=== PATIENT | male | born 1940 | race Caucasian/White ===

== ENCOUNTER 2016-10-07 11:39 | Inpatient (IN) | payer MEDICARE, OTHER ==
[~2016-10-07] VITALS: Ht 185.4 cm; Wt 121.3 kg
[2016-10-07] MEDS ORDERED: SODIUM CHLORIDE 0.9% 1,000 ML IV ONE (12:33)
[2016-10-07] MEDS ORDERED: PLEASE ENTER ALLERGIES MC SCH ×2 (13:00)
[2016-10-07] MEDS ORDERED: SODIUM CHLORIDE 0.9% 1,000ML IVBOLUS ONE ×2 (13:00→15:30)
[2016-10-07] MEDS ORDERED: SODIUM CHLORIDE FLUSH 10ML SYR IVF ONE ×2 (13:00→17:00)
[2016-10-07] MEDS ORDERED: ONDANSETRON 2MG/ML, 2ML IVPush ONE (13:00)
[2016-10-07] MEDS ORDERED: ACETAMINOPHEN 500 MG TABLET ONE (13:23)
[2016-10-07] MEDS ORDERED: ONDANSETRON 2MG/ML, 2ML ONE (13:24)
[2016-10-07 13:42] LABS: ASPARTATE AMINO TRANSFERASE 14 U/L (15-37); BLOOD UREA NITROGEN 21 mg/dL (7-18)
[2016-10-07 13:47] LABS: DIFF TOTAL CELLS COUNTED 100 CELL DIFF
[2016-10-07 13:49] LABS: VERIFY COUNTS? YES
[2016-10-07 13:50] LABS: ANISOCYTOSIS 1+
[2016-10-07] MEDS ORDERED: ACETAMINOPHEN 500 MG TABLET PO ONE (14:00)
[2016-10-07] MEDS ORDERED: METO-95 PO (14:26)
[2016-10-07] MEDS ORDERED: ASPI-515 PO (14:26)
[2016-10-07] MEDS ORDERED: SPIR25TA3 PO (14:26)
[2016-10-07] MEDS ORDERED: SITA100T PO (14:27)
[2016-10-07] MEDS ORDERED: LACT1CAP24 PO (14:27)
[2016-10-07] MEDS ORDERED: METF10002 PO (14:27)
[2016-10-07] MEDS ORDERED: OMEG1CAP23 PO (14:27)
[2016-10-07] MEDS ORDERED: INSU100C5 SQ-INSULIN (14:27)
[2016-10-07] MEDS ORDERED: FERR325T10 PO (14:27)
[2016-10-07] MEDS ORDERED: INSU100V8 SQ ×2 (14:27)
[2016-10-07] MEDS ORDERED: HYDR-3342 PO (14:27)
[2016-10-07] MEDS ORDERED: FLONASE 50 MCG NAS (14:27)
[2016-10-07] MEDS ORDERED: MAGN400T36 PO (14:27)
[2016-10-07] MEDS ORDERED: WARF7.5T6 PO (14:27)
[2016-10-07] MEDS ORDERED: FURO20TA3 PO (14:27)
[2016-10-07] MEDS ORDERED: ATOR20TA9 PO (14:27)
[2016-10-07] MEDS ORDERED: LISI-170 PO (14:27)
[2016-10-07] MEDS ORDERED: POTA20TA89 PO (14:27)
[2016-10-07] MEDS ORDERED: GABA300C10 PO (14:27)
[2016-10-07] MEDS ORDERED: OXYC10TA6 PO (14:27)
[2016-10-07] MEDS ORDERED: WARF10TA6 PO (14:27)
[2016-10-07 14:32] LABS: PATH.CAST-FLAG NOT PRESENT; SPERM-FLAG NOT PRESENT; SRC-FLAG NOT PRESENT; XTAL-FLAG NOT PRESENT; YLC-FLAG NOT PRESENT
[2016-10-07] MEDS ORDERED: CEFTRIAXONE PMX 1GM/50ML 50 ML ONE (15:14)
[2016-10-07] MEDS ORDERED: VANCOMYCIN PER PHARMACY MC ONE (15:30)
[2016-10-07] MEDS ORDERED: CEFTRIAXONE 1,000 MG in SODIUM CHLORIDE 0.9% 50 ML IVPB ONE (16:00)
[2016-10-07] MEDS ORDERED: VANCOMYCIN 2,500 MG in SODIUM CHLORIDE 0.9% 500 ML IV ONE (16:30)
[2016-10-07] MEDS ORDERED: TEMPLATE NON-FORMULARY MED. (Oxycodone Hcl** 10 MG) PO SCH (16:30)
[2016-10-07] MEDS ORDERED: VANCOMYCIN PER PHARMACY MC PRN (16:30)
[2016-10-07] MEDS ORDERED: DOCUSATE 100 MG CAPSULE PO PRN (17:00)
[2016-10-07] MEDS ORDERED: ACETAMINOPHEN 325 MG TABLET PO PRN (17:00)
[2016-10-07] MEDS ORDERED: hydrALAzine 20 MG/ML, 1ML IVPush PRN (17:00)
[2016-10-07] MEDS ORDERED: morphine SULFATE 10 MG/ML, 1ML IVPush PRN (17:00)
[2016-10-07] MEDS ORDERED: GUAIFENESIN/DM 200-20MG, 10ML UDC PO PRN (17:00)
[2016-10-07] MEDS ORDERED: ONDANSETRON 2MG/ML, 2ML IVPush PRN (17:00)
[2016-10-07 18:33] VITALS: BP_SYST 94; BP_SYST 97; BP_DIAS 56; BP_DIAS 57
[2016-10-07] MEDS ORDERED: OXYcodone IR 5MG TABLET PO SCH (18:43)
[2016-10-07] MEDS ORDERED: NALOXONE 1 MG/ML, 2ML ONE ×2 (18:55→19:09)
[2016-10-07] MEDS: NALOXONE 1 MG/ML, 2ML IVPush PRN ×2 (18:55→19:05)
[2016-10-07] MEDS: WARFARIN 7.5 MG TABLET PO-COUM SCH (19:00)
[2016-10-07] MEDS ORDERED: PHARMACOKINETIC CONSULTATION MC ONE (19:30)
[2016-10-07] MEDS ORDERED: PHARMACOKINETIC MONITORING MC PRN (19:30)
[2016-10-07 19:47] LABS: ABG COLLECTION SITE LEFT RADIAL; COLLATERAL CIRCULATION TESTING NORMAL
[2016-10-07] MEDS ORDERED: PIPERACILLIN/TAZO 3.375 GM in SODIUM CHLORIDE 0.9% 50 ML IV SCH (20:00)
[2016-10-07] MEDS: SODIUM CHLORIDE 0.9% 1,000 ML IV SCH (20:16)
[2016-10-07] MEDS: PIPERACILLIN/TAZO/PMX 3.375GM 50 ML IV SCH (20:37)
[2016-10-07] MEDS ORDERED: DEXTROSE 50%, 50ML SYRINGE ONE (20:38)
[2016-10-07] MEDS: SODIUM CHLORIDE FLUSH 10ML SYR IVF SCH (20:49)
[2016-10-07] MEDS ORDERED: DEXTROSE 4 GM TAB.CHEW PO PRN (21:00)
[2016-10-07] MEDS: INSULIN DETEMIR 100 UNITS/ML, PEN SQ-INSULIN SCH (21:00)
[2016-10-07] MEDS: ATORVASTATIN 20 MG TABLET PO SCH (21:00)
[2016-10-07] MEDS ORDERED: GLUCAGON 1 MG IM PRN (21:00)
[2016-10-07] MEDS ORDERED: DEXTROSE 50%, 50ML SYRINGE IVPush PRN (21:00)
[2016-10-07] MEDS: LACTOBACILLUS CHEW TABLET PO SCH (21:00)
[2016-10-07] MEDS: GABAPENTIN 300 MG CAPSULE PO SCH (21:00)
[2016-10-07] MEDS: LISINOPRIL 20 MG TABLET PO SCH (21:00)
[2016-10-07] MEDS: VANCOMYCIN 2,000 MG in SODIUM CHLORIDE 0.9% 500 ML IV SCH (21:56)
[2016-10-07] MEDS ORDERED: CEFTRIAXONE PMX 1GM/50ML 50 ML IV SCH (22:00)
[2016-10-07 22:05] VITALS: BP 128/93
[2016-10-07] MEDS: methylPREDNISolone SOD SUCC 125 MG/2 ML IVPush SCH (22:14)
[2016-10-08] VITALS (7 sets, daily range): BP systolic 125–163; BP diastolic 84–139
[2016-10-08] MEDS: PIPERACILLIN/TAZO/PMX 3.375GM 50 ML IV SCH ×3 (02:08→18:10)
[2016-10-08] MEDS: methylPREDNISolone SOD SUCC 125 MG/2 ML IVPush SCH ×3 (02:45→14:30)
[2016-10-08] MEDS ORDERED: CEFTRIAXONE PMX 1GM/50ML 50 ML IV SCH (03:00)
[2016-10-08 06:50] LABS: BLOOD UREA NITROGEN 20 mg/dL (7-18)
[2016-10-08] MEDS: GABAPENTIN 300 MG CAPSULE PO SCH ×3 (08:27→22:03)
[2016-10-08] MEDS: POTASSIUM CHLORIDE 20 MEQ TAB.ER.PRT PO SCH (08:27)
[2016-10-08] MEDS: METOPROLOL SUCCINATE 100 MG TAB.ER.24H PO SCH (08:27)
[2016-10-08] MEDS: LACTOBACILLUS CHEW TABLET PO SCH ×3 (08:27→22:02)
[2016-10-08] MEDS: SPIRONOLACTONE 25 MG TABLET PO SCH (08:27)
[2016-10-08] MEDS: FUROSEMIDE 20 MG TABLET PO SCH (08:27)
[2016-10-08] MEDS: INSULIN DETEMIR 100 UNITS/ML, PEN SQ-INSULIN SCH ×2 (08:28→22:03)
[2016-10-08] MEDS: ASPIRIN 81 MG TABLET EC PO SCH (08:28)
[2016-10-08] MEDS: FERROUS SULFATE 325 MG TABLET PO SCH (08:28)
[2016-10-08] MEDS: SODIUM CHLORIDE FLUSH 10ML SYR IVF SCH ×2 (08:29→22:02)
[2016-10-08] MEDS ORDERED: DILTIAZEM 5 MG/ML, 5ML ONE (08:46)
[2016-10-08] MEDS ORDERED: DILTIAZEM 125 MG in SODIUM CHLORIDE 0.9% 100 ML IV SCH (09:00)
[2016-10-08] MEDS ORDERED: DILTIAZEM 5 MG/ML, 5ML IVPush ONE (09:00)
[2016-10-08] MEDS: FLUTICASONE NASAL SPRAY 16GM NAS SCH (09:00)
[2016-10-08] MEDS ORDERED: METOPROLOL SUCCINATE 100 MG TAB.ER.24H PO SCH (09:00)
[2016-10-08] MEDS: SODIUM CHLORIDE 0.9% 1,000 ML IV SCH (10:00)
[2016-10-08] MEDS: INSULIN ASPART 100 UNITS/ML, PEN SQ-INSULIN SCH ×3 (14:20→22:04)
[2016-10-08] MEDS: WARFARIN 7.5 MG TABLET PO-COUM SCH (18:10)
[2016-10-08] MEDS: VANCOMYCIN 2,000 MG in SODIUM CHLORIDE 0.9% 500 ML IV SCH (18:55)
[2016-10-08] MEDS: ATORVASTATIN 20 MG TABLET PO SCH (22:02)
[2016-10-08] MEDS: LISINOPRIL 20 MG TABLET PO SCH (22:08)
[2016-10-08] MEDS: methylPREDNISolone SOD SUCC 40 MG/ML IVPush SCH (22:08)
[2016-10-09] MEDS ORDERED: MAGNESIUM SULFATE PMX 2GM/50ML 50 ML IV ONE
[2016-10-09] MEDS: PIPERACILLIN/TAZO/PMX 3.375GM 50 ML IV SCH ×5 (00:21→23:40)
[2016-10-09] MEDS ORDERED: DILTIAZEM 125 MG in SODIUM CHLORIDE 0.9% 100 ML IV SCH ×2 (01:30→09:00)
[2016-10-09 01:42] VITALS: BP 124/75
[2016-10-09] MEDS: methylPREDNISolone SOD SUCC 40 MG/ML IVPush SCH (05:53)
[2016-10-09 06:44] VITALS: BP 135/87
[2016-10-09] MEDS: ASPIRIN 81 MG TABLET EC PO SCH (08:39)
[2016-10-09] MEDS: GABAPENTIN 300 MG CAPSULE PO SCH ×3 (08:39→20:40)
[2016-10-09] MEDS: METOPROLOL SUCCINATE 100 MG TAB.ER.24H PO SCH (08:39)
[2016-10-09] MEDS: FUROSEMIDE 20 MG TABLET PO SCH (08:39)
[2016-10-09] MEDS: FERROUS SULFATE 325 MG TABLET PO SCH (08:39)
[2016-10-09] MEDS: INSULIN DETEMIR 100 UNITS/ML, PEN SQ-INSULIN SCH ×2 (08:40→20:44)
[2016-10-09] MEDS: SPIRONOLACTONE 25 MG TABLET PO SCH (08:40)
[2016-10-09] MEDS: POTASSIUM CHLORIDE 20 MEQ TAB.ER.PRT PO SCH (08:40)
[2016-10-09] MEDS: LACTOBACILLUS CHEW TABLET PO SCH ×3 (08:40→20:40)
[2016-10-09] MEDS: INSULIN ASPART 100 UNITS/ML, PEN SQ-INSULIN SCH ×4 (08:40→20:44)
[2016-10-09] MEDS: SODIUM CHLORIDE FLUSH 10ML SYR IVF SCH ×2 (08:41→20:40)
[2016-10-09] MEDS: FLUTICASONE NASAL SPRAY 16GM NAS SCH (09:54)
[2016-10-09] MEDS: VANCOMYCIN 2,000 MG in SODIUM CHLORIDE 0.9% 500 ML IV SCH (12:43)
[2016-10-09] MEDS ORDERED: DIGOXIN 0.25 MG TABLET PO ONE (13:00)
[2016-10-09 13:36] VITALS: BP 150/91
[2016-10-09] MEDS: WARFARIN 7.5 MG TABLET PO-COUM SCH (18:04)
[2016-10-09 20:29] VITALS: BP 163/93
[2016-10-09] MEDS: LISINOPRIL 20 MG TABLET PO SCH (20:40)
[2016-10-09] MEDS: HYDROcodone/APAP 5/325 TABLET PO PRN ×2 (20:41→23:41)
[2016-10-09] MEDS: ATORVASTATIN 20 MG TABLET PO SCH (20:41)
[2016-10-10 01:30] VITALS: BP_SYST 159; BP_DIAS 100; BP_DIAS 99
[2016-10-10] MEDS: PIPERACILLIN/TAZO/PMX 3.375GM 50 ML IV SCH ×3 (05:50→18:28)
[2016-10-10 06:20] LABS: BLOOD UREA NITROGEN 16 mg/dL (7-18)
[2016-10-10] MEDS: VANCOMYCIN 2,000 MG in SODIUM CHLORIDE 0.9% 500 ML IV SCH (06:29)
[2016-10-10] MEDS: INSULIN ASPART 100 UNITS/ML, PEN SQ-INSULIN SCH ×4 (07:00→21:49)
[2016-10-10 08:08] VITALS: BP 144/105
[2016-10-10] MEDS ORDERED: MAGNESIUM SULFATE PMX 2GM/50ML 50 ML IV ONE (09:00)
[2016-10-10] MEDS: INSULIN DETEMIR 100 UNITS/ML, PEN SQ-INSULIN SCH ×2 (09:44→21:48)
[2016-10-10] MEDS: ASPIRIN 81 MG TABLET EC PO SCH (09:45)
[2016-10-10] MEDS: METOPROLOL SUCCINATE 100 MG TAB.ER.24H PO SCH (09:45)
[2016-10-10] MEDS: DIGOXIN 0.125 MG TABLET PO SCH (09:45)
[2016-10-10] MEDS: FLUTICASONE NASAL SPRAY 16GM NAS SCH (09:45)
[2016-10-10] MEDS: SPIRONOLACTONE 25 MG TABLET PO SCH (09:46)
[2016-10-10] MEDS: POTASSIUM CHLORIDE 20 MEQ TAB.ER.PRT PO SCH (09:46)
[2016-10-10] MEDS: LACTOBACILLUS CHEW TABLET PO SCH ×3 (09:46→21:44)
[2016-10-10] MEDS: FUROSEMIDE 20 MG TABLET PO SCH (09:46)
[2016-10-10] MEDS: FERROUS SULFATE 325 MG TABLET PO SCH (09:46)
[2016-10-10] MEDS: GABAPENTIN 300 MG CAPSULE PO SCH ×3 (09:46→21:44)
[2016-10-10] MEDS: SODIUM CHLORIDE FLUSH 10ML SYR IVF SCH ×2 (09:54→21:44)
[2016-10-10 13:08] VITALS: BP 146/88
[2016-10-10] MEDS: WARFARIN 7.5 MG TABLET PO-COUM SCH (18:23)
[2016-10-10] MEDS: LISINOPRIL 20 MG TABLET PO SCH (21:44)
[2016-10-10] MEDS: ATORVASTATIN 20 MG TABLET PO SCH (21:44)
[2016-10-10 21:49] VITALS: BP 150/80
[2016-10-11] MEDS: PIPERACILLIN/TAZO/PMX 3.375GM 50 ML IV SCH ×4 (00:23→17:24)
[2016-10-11 02:52] VITALS: BP 125/87
[2016-10-11] MEDS ORDERED: VANCOMYCIN 2,000 MG in SODIUM CHLORIDE 0.9% 500 ML IV SCH (06:00)
[2016-10-11] MEDS ORDERED: MAGNESIUM SULFATE PMX 2GM/50ML 50 ML IV ONE (06:00)
[2016-10-11] MEDS: INSULIN ASPART 100 UNITS/ML, PEN SQ-INSULIN SCH ×4 (07:00→21:11)
[2016-10-11 07:09] LABS: BLOOD UREA NITROGEN 17 mg/dL (7-18)
[2016-10-11 07:23] VITALS: BP 152/83
[2016-10-11] MEDS ORDERED: POTASSIUM CHLORIDE 20 MEQ TAB.ER.PRT PO SCH (09:00)
[2016-10-11] MEDS: FLUTICASONE NASAL SPRAY 16GM NAS SCH (09:36)
[2016-10-11] MEDS: FERROUS SULFATE 325 MG TABLET PO SCH (09:36)
[2016-10-11] MEDS: SPIRONOLACTONE 25 MG TABLET PO SCH (09:36)
[2016-10-11] MEDS: METOPROLOL SUCCINATE 100 MG TAB.ER.24H PO SCH (09:37)
[2016-10-11] MEDS: DIGOXIN 0.125 MG TABLET PO SCH (09:37)
[2016-10-11] MEDS: ASPIRIN 81 MG TABLET EC PO SCH (09:37)
[2016-10-11] MEDS: POTASSIUM CHLORIDE 20 MEQ TAB.ER.PRT PO SCH ×2 (09:37→21:09)
[2016-10-11] MEDS: GABAPENTIN 300 MG CAPSULE PO SCH ×3 (09:38→21:09)
[2016-10-11] MEDS: SODIUM CHLORIDE FLUSH 10ML SYR IVF SCH ×2 (09:38→21:11)
[2016-10-11] MEDS: FUROSEMIDE 20 MG TABLET PO SCH (09:38)
[2016-10-11] MEDS: INSULIN DETEMIR 100 UNITS/ML, PEN SQ-INSULIN SCH ×2 (09:39→21:10)
[2016-10-11] MEDS: LACTOBACILLUS CHEW TABLET PO SCH ×3 (09:42→21:09)
[2016-10-11] MEDS ORDERED: DIGOXIN 0.125 MG TABLET PO SCH (10:00)
[2016-10-11 14:59] VITALS: BP 146/78
[2016-10-11] MEDS: WARFARIN 7.5 MG TABLET PO-COUM SCH (17:24)
[2016-10-11 20:26] VITALS: BP 151/53
[2016-10-11] MEDS: ATORVASTATIN 20 MG TABLET PO SCH (21:09)
[2016-10-11] MEDS: LISINOPRIL 20 MG TABLET PO SCH (21:09)
[2016-10-12] MEDS: PIPERACILLIN/TAZO/PMX 3.375GM 50 ML IV SCH ×4 (00:14→20:10)
[2016-10-12 01:22] VITALS: BP 147/65
[2016-10-12 05:23] LABS: BLOOD UREA NITROGEN 19 mg/dL (7-18)
[2016-10-12] MEDS: INSULIN ASPART 100 UNITS/ML, PEN SQ-INSULIN SCH ×4 (07:00→21:12)
[2016-10-12 08:00] VITALS: BP 119/77
[2016-10-12] MEDS: SODIUM CHLORIDE FLUSH 10ML SYR IVF SCH ×2 (09:14→21:09)
[2016-10-12] MEDS: FLUTICASONE NASAL SPRAY 16GM NAS SCH (09:14)
[2016-10-12] MEDS: INSULIN DETEMIR 100 UNITS/ML, PEN SQ-INSULIN SCH ×2 (09:14→21:11)
[2016-10-12] MEDS: FERROUS SULFATE 325 MG TABLET PO SCH (09:16)
[2016-10-12] MEDS: POTASSIUM CHLORIDE 20 MEQ TAB.ER.PRT PO SCH ×2 (09:16→21:09)
[2016-10-12] MEDS: LACTOBACILLUS CHEW TABLET PO SCH ×3 (09:16→21:09)
[2016-10-12] MEDS: ASPIRIN 81 MG TABLET EC PO SCH (09:16)
[2016-10-12] MEDS: SPIRONOLACTONE 25 MG TABLET PO SCH (09:16)
[2016-10-12] MEDS: DIGOXIN 0.125 MG TABLET PO SCH (09:16)
[2016-10-12] MEDS: GABAPENTIN 300 MG CAPSULE PO SCH ×3 (09:17→21:10)
[2016-10-12] MEDS: FUROSEMIDE 20 MG TABLET PO SCH (09:17)
[2016-10-12] MEDS: METOPROLOL SUCCINATE 100 MG TAB.ER.24H PO SCH (09:17)
[2016-10-12 14:50] VITALS: BP 116/69
[2016-10-12] MEDS: WARFARIN 7.5 MG TABLET PO-COUM SCH (17:46)
[2016-10-12 20:11] VITALS: BP 137/93
[2016-10-12] MEDS: ATORVASTATIN 20 MG TABLET PO SCH (21:10)
[2016-10-12] MEDS: LISINOPRIL 20 MG TABLET PO SCH (21:10)
[2016-10-13 01:44] VITALS: BP 137/95
[2016-10-13] MEDS: PIPERACILLIN/TAZO/PMX 3.375GM 50 ML IV SCH ×4 (01:48→22:09)
[2016-10-13] MEDS: INSULIN ASPART 100 UNITS/ML, PEN SQ-INSULIN SCH ×4 (07:00→22:13)
[2016-10-13 07:25] VITALS: BP 119/73
[2016-10-13] MEDS: INSULIN DETEMIR 100 UNITS/ML, PEN SQ-INSULIN SCH ×2 (08:07→22:13)
[2016-10-13] MEDS: GABAPENTIN 300 MG CAPSULE PO SCH ×3 (08:08→22:14)
[2016-10-13] MEDS: FLUTICASONE NASAL SPRAY 16GM NAS SCH (08:08)
[2016-10-13] MEDS: ASPIRIN 81 MG TABLET EC PO SCH (08:08)
[2016-10-13] MEDS: SODIUM CHLORIDE FLUSH 10ML SYR IVF SCH ×2 (08:08→21:00)
[2016-10-13] MEDS: SPIRONOLACTONE 25 MG TABLET PO SCH (08:09)
[2016-10-13] MEDS: LACTOBACILLUS CHEW TABLET PO SCH ×3 (08:09→22:14)
[2016-10-13] MEDS: DIGOXIN 0.125 MG TABLET PO SCH (08:09)
[2016-10-13] MEDS: METOPROLOL SUCCINATE 100 MG TAB.ER.24H PO SCH (08:10)
[2016-10-13] MEDS: FERROUS SULFATE 325 MG TABLET PO SCH (08:10)
[2016-10-13] MEDS: POTASSIUM CHLORIDE 20 MEQ TAB.ER.PRT PO SCH ×2 (08:10→22:14)
[2016-10-13] MEDS: FUROSEMIDE 20 MG TABLET PO SCH (08:11)
[2016-10-13 13:24] VITALS: BP 131/86
[2016-10-13] MEDS: WARFARIN 7.5 MG TABLET PO-COUM SCH (16:33)
[2016-10-13 18:53] VITALS: BP 145/101
[2016-10-13] MEDS: ATORVASTATIN 20 MG TABLET PO SCH (22:14)
[2016-10-13] MEDS: LISINOPRIL 20 MG TABLET PO SCH (22:15)
[2016-10-14 02:03] VITALS: BP 148/62
[2016-10-14 02:30] LABS: PATH.CAST-FLAG NOT PRESENT; SPERM-FLAG NOT PRESENT; SRC-FLAG NOT PRESENT; XTAL-FLAG NOT PRESENT; YLC-FLAG NOT PRESENT
[2016-10-14] MEDS: PIPERACILLIN/TAZO/PMX 3.375GM 50 ML IV SCH ×4 (04:40→23:52)
[2016-10-14] MEDS: INSULIN ASPART 100 UNITS/ML, PEN SQ-INSULIN SCH ×4 (07:00→20:49)
[2016-10-14 08:37] VITALS: BP 144/96
[2016-10-14] MEDS: SODIUM CHLORIDE FLUSH 10ML SYR IVF SCH ×2 (09:00→20:50)
[2016-10-14] MEDS: INSULIN DETEMIR 100 UNITS/ML, PEN SQ-INSULIN SCH ×2 (10:27→20:49)
[2016-10-14] MEDS: FERROUS SULFATE 325 MG TABLET PO SCH (10:28)
[2016-10-14] MEDS: POTASSIUM CHLORIDE 20 MEQ TAB.ER.PRT PO SCH ×2 (10:28→20:49)
[2016-10-14] MEDS: ASPIRIN 81 MG TABLET EC PO SCH (10:28)
[2016-10-14] MEDS: LACTOBACILLUS CHEW TABLET PO SCH ×3 (10:28→20:50)
[2016-10-14] MEDS: DIGOXIN 0.125 MG TABLET PO SCH (10:28)
[2016-10-14] MEDS: FLUTICASONE NASAL SPRAY 16GM NAS SCH (10:28)
[2016-10-14] MEDS: METOPROLOL SUCCINATE 100 MG TAB.ER.24H PO SCH (10:28)
[2016-10-14] MEDS: GABAPENTIN 300 MG CAPSULE PO SCH ×3 (10:29→20:50)
[2016-10-14] MEDS: SPIRONOLACTONE 25 MG TABLET PO SCH (10:29)
[2016-10-14] MEDS: FUROSEMIDE 20 MG TABLET PO SCH (10:29)
[2016-10-14 13:23] VITALS: BP_SYST 126; BP_SYST 131; BP_DIAS 76; BP_DIAS 77
[2016-10-14] MEDS: WARFARIN 7.5 MG TABLET PO-COUM SCH (16:38)
[2016-10-14 17:06] VITALS: BP 136/85
[2016-10-14 19:12] VITALS: BP 143/87
[2016-10-14] MEDS: ATORVASTATIN 20 MG TABLET PO SCH (20:49)
[2016-10-14] MEDS: LISINOPRIL 20 MG TABLET PO SCH (20:50)
[2016-10-15 01:36] VITALS: BP 120/73
[2016-10-15] MEDS: PIPERACILLIN/TAZO/PMX 3.375GM 50 ML IV SCH ×4 (05:33→23:38)
[2016-10-15] MEDS ORDERED: CATHFLO-ALTEPLASE 2 MG/2 ML CATHFLUSH ONE ×2 (06:00)
[2016-10-15 08:35] VITALS: BP 173/76
[2016-10-15] MEDS: SODIUM CHLORIDE FLUSH 10ML SYR IVF SCH ×2 (09:00→21:19)
[2016-10-15] MEDS: INSULIN ASPART 100 UNITS/ML, PEN SQ-INSULIN SCH ×4 (09:50→21:36)
[2016-10-15] MEDS: LACTOBACILLUS CHEW TABLET PO SCH ×3 (09:52→21:17)
[2016-10-15] MEDS: FLUTICASONE NASAL SPRAY 16GM NAS SCH (09:52)
[2016-10-15] MEDS: INSULIN DETEMIR 100 UNITS/ML, PEN SQ-INSULIN SCH ×2 (09:52→21:37)
[2016-10-15] MEDS: POTASSIUM CHLORIDE 20 MEQ TAB.ER.PRT PO SCH ×2 (09:53→21:18)
[2016-10-15] MEDS: GABAPENTIN 300 MG CAPSULE PO SCH ×3 (09:53→21:18)
[2016-10-15] MEDS: DIGOXIN 0.125 MG TABLET PO SCH (09:53)
[2016-10-15] MEDS: METOPROLOL SUCCINATE 100 MG TAB.ER.24H PO SCH (09:53)
[2016-10-15] MEDS: FUROSEMIDE 20 MG TABLET PO SCH (09:53)
[2016-10-15] MEDS: ASPIRIN 81 MG TABLET EC PO SCH (09:54)
[2016-10-15] MEDS: FERROUS SULFATE 325 MG TABLET PO SCH (09:54)
[2016-10-15] MEDS: SPIRONOLACTONE 25 MG TABLET PO SCH (09:54)
[2016-10-15 17:00] VITALS: BP 154/67
[2016-10-15] MEDS: WARFARIN 7.5 MG TABLET PO-COUM SCH (17:35)
[2016-10-15 19:41] VITALS: BP 128/81
[2016-10-15] MEDS: LISINOPRIL 20 MG TABLET PO SCH (21:18)
[2016-10-15] MEDS: ATORVASTATIN 20 MG TABLET PO SCH (21:18)
[2016-10-16 01:02] VITALS: BP 112/83
[2016-10-16] MEDS: PIPERACILLIN/TAZO/PMX 3.375GM 50 ML IV SCH ×2 (05:16→11:57)
[2016-10-16 08:37] VITALS: BP 118/80
[2016-10-16] MEDS: SODIUM CHLORIDE FLUSH 10ML SYR IVF SCH (09:00)
[2016-10-16] MEDS: INSULIN ASPART 100 UNITS/ML, PEN SQ-INSULIN SCH ×2 (09:41→11:56)
[2016-10-16] MEDS: FLUTICASONE NASAL SPRAY 16GM NAS SCH (09:42)
[2016-10-16] MEDS: INSULIN DETEMIR 100 UNITS/ML, PEN SQ-INSULIN SCH (09:42)
[2016-10-16] MEDS: FUROSEMIDE 20 MG TABLET PO SCH (09:43)
[2016-10-16] MEDS: METOPROLOL SUCCINATE 100 MG TAB.ER.24H PO SCH (09:43)
[2016-10-16] MEDS: POTASSIUM CHLORIDE 20 MEQ TAB.ER.PRT PO SCH (09:43)
[2016-10-16] MEDS: DIGOXIN 0.125 MG TABLET PO SCH (09:43)
[2016-10-16] MEDS: GABAPENTIN 300 MG CAPSULE PO SCH (09:43)
[2016-10-16] MEDS: LACTOBACILLUS CHEW TABLET PO SCH (09:43)
[2016-10-16] MEDS: SPIRONOLACTONE 25 MG TABLET PO SCH (09:44)
[2016-10-16] MEDS: ASPIRIN 81 MG TABLET EC PO SCH (09:48)
[2016-10-16] MEDS: FERROUS SULFATE 325 MG TABLET PO SCH (09:48)
[2016-10-16] MEDS ORDERED: POTA20TA6 PO (14:05)
[2016-10-16] MEDS ORDERED: DIGO125T PO (14:05)
[2016-10-16] MEDS ORDERED: AMOX1TAB64 PO (14:05)
[2016-10-16 14:30] VITALS: BP 145/68
== END 2016-10-16 17:30 | DRG 872 ==
LOC: ED 13:37 → EDIP 15:53 → 4WST 18:18 → 5SO 10-08 09:26 → 3NE 10-14 16:16
PROVIDERS: ADMIT Internal Medicine; ATTEND Family Medicine
PROC: 0T9B70Z Drainage of Bladder with Drainage Device, Via Natural or Artificial Opening (ICD-10-PCS; principal; 2016-10-07)
PROC: 02HV33Z Insertion of Infusion Device into Superior Vena Cava, Percutaneous Approach (ICD-10-PCS; 2016-10-08)
PROC: B548ZZA Ultrasonography of Superior Vena Cava, Guidance (ICD-10-PCS; 2016-10-08)
PROC: 0T2BX0Z Change Drainage Device in Bladder, External Approach (ICD-10-PCS; 2016-10-14)
DX: A41.81 Sepsis due to Enterococcus (principal); L03.115 Cellulitis of right lower limb; I50.22 Chronic systolic (congestive) heart failure; I69.351 Hemiplegia and hemiparesis following cerebral infarction affecting right dominant side; N10 Acute pyelonephritis; M80.061A Age-related osteoporosis with current pathological fracture, right lower leg, initial encounter for fracture; B96.1 Klebsiella pneumoniae [K. pneumoniae] as the cause of diseases classified elsewhere; E11.9 Type 2 diabetes mellitus without complications; E66.01 Morbid (severe) obesity due to excess calories; F03.90 Unspecified dementia, unspecified severity, without behavioral disturbance, psychotic disturbance, mood disturbance, and anxiety; I11.0 Hypertensive heart disease with heart failure; I25.10 Atherosclerotic heart disease of native coronary artery without angina pectoris; I48.2 Chronic atrial fibrillation; I87.2 Venous insufficiency (chronic) (peripheral); J44.9 Chronic obstructive pulmonary disease, unspecified; N40.0 Benign prostatic hyperplasia without lower urinary tract symptoms; R32 Unspecified urinary incontinence; R65.20 Severe sepsis without septic shock; Z16.12 Extended spectrum beta lactamase (ESBL) resistance; Z66 Do not resuscitate; Z68.35 Body mass index [BMI] 35.0-35.9, adult; I25.2 Old myocardial infarction; Z79.01 Long term (current) use of anticoagulants; Z87.440 Personal history of urinary (tract) infections; Z95.5 Presence of coronary angioplasty implant and graft; Z88.1 Allergy status to other antibiotic agents
CPT/HCPCS: 36415; 36569; 36600; 70450; 71010; 76937; 77001; 80048; 80053; 80202; 81001; 82803; 82962; 83605; 83735; 83880; 84100; 84145; 85025; 85610; 85651; 85730; 86140; 87040; 87077; 87086; 87150; 87186; 93005; 96361; 96365; 96367; 96375; J0696; J1815; J2405; J2543; J2997; J3370; C1751; J2310; J2920; J2930; J3475; J7030; J7040